=== PATIENT | female | born 1960 | race Hispanic/Latino ===

== ENCOUNTER 2020-11-03 15:48 | Emergency (ER) | payer SELFPAY ==
[2020-11-03 17:24] VITALS: BP 214/103
--- NOTE | 2020-11-03 17:40 | Emergency Department Report ---
ED ENT HPI - General Chief complaint: Skin/Abscess/Foreign Body Stated complaint: FACIAL EDEMA Time Seen by Provider: 11/03/20 17:28 Source: patient Mode of arrival: Ambulatory Limitations: No Limitations - History of Present Illness Initial comments: Patient is a 60-year-old female presents emergency room with complaints of left upper dental pain that began yesterday. States this morning when she woke up she noticed left facial edema. She states that she has not seen a dentist in multiple years. She denies any fever, nausea, vomiting, diarrhea, difficulty swallowing, difficulty breathing. Past medical history of cirrhosis and hepatitis C and HTN. Allergy to erythromycin. She states that she has not taken blood pressure medication in 10 years and has no idea what she previously took. - Related Data Home Medications Medication Instructions Recorded Confirmed Last Taken FLUoxetine [PROzac] 20 mg PO QDAY 04/05/13 04/05/13 Unknown Previous Rx's Medication Instructions Recorded Last Taken Type Metoclopramide HCl [Reglan] 10 mg PO Q6H PRN #15 tablet 04/05/13 Unknown Rx Nitrofurantoin Carroll/M-Cryst 100 mg PO Q12HR #10 capsule 04/05/13 Unknown Rx [Macrobid] Chlorhexidine Mouthwash [Peridex] 15 ml MM BID #1 bottle 11/03/20 Unknown Rx Clindamycin [Clindamycin CAP] 450 mg PO TID 7 Days #63 capsule 11/03/20 Unknown Rx Valsartan 80 mg PO DAILY #30 tablet 11/03/20 Unknown Rx amLODIPine 5 mg PO DAILY #30 tab 11/03/20 Unknown Rx oxyCODONE [roxiCODONE] 5 mg PO Q6HR PRN #10 tablet 11/03/20 Unknown Rx Allergies Allergy/AdvReac Type Severity Reaction Status Date / Time erythromycin base Allergy Vomiting Verified 04/05/13 13:43 [Erythromycin Base] ED Dental HPI - General Chief complaint: Skin/Abscess/Foreign Body Stated complaint: FACIAL EDEMA Time Seen by Provider: 11/03/20 17:28 Source: patient Mode of arrival: Ambulatory Limitations: No Limitations - Related Data Home Medications Medication Instructions Recorded Confirmed Last Taken FLUoxetine [PROzac] 20 mg PO QDAY 04/05/13 04/05/13 Unknown Previous Rx's Medication Instructions Recorded Last Taken Type Metoclopramide HCl [Reglan] 10 mg PO Q6H PRN #15 tablet 04/05/13 Unknown Rx Nitrofurantoin Carroll/M-Cryst 100 mg PO Q12HR #10 capsule 04/05/13 Unknown Rx [Macrobid] Chlorhexidine Mouthwash [Peridex] 15 ml MM BID #1 bottle 11/03/20 Unknown Rx Clindamycin [Clindamycin CAP] 450 mg PO TID 7 Days #63 capsule 11/03/20 Unknown Rx Valsartan 80 mg PO DAILY #30 tablet 11/03/20 Unknown Rx amLODIPine 5 mg PO DAILY #30 tab 11/03/20 Unknown Rx oxyCODONE [roxiCODONE] 5 mg PO Q6HR PRN #10 tablet 11/03/20 Unknown Rx Allergies Allergy/AdvReac Type Severity Reaction Status Date / Time erythromycin base Allergy Vomiting Verified 04/05/13 13:43 [Erythromycin Base] ED Review of Systems ROS: Stated complaint: FACIAL EDEMA Other details as noted in HPI Comment: All other systems reviewed and negative ED Past Medical Hx - Past Medical History Previous Medical History?: Yes Hx Hypertension: Yes Additional medical history: Stage 4 Liver disease/cirrhosis, hepatitis - Surgical History Past Surgical History?: Yes Hx Appendectomy: Yes Additional Surgical History: tonsillectomy, Hysterectomy - Social History Smoking Status: Current Every Day Smoker Substance Use Type: Alcohol - Medications Home Medications: Home Medications Medication Instructions Recorded Confirmed Last Taken Type FLUoxetine [PROzac] 20 mg PO QDAY 04/05/13 04/05/13 Unknown History Metoclopramide HCl [Reglan] 10 mg PO Q6H PRN #15 tablet 04/05/13 Unknown Rx Nitrofurantoin Carroll/M-Cryst 100 mg PO Q12HR #10 capsule 04/05/13 Unknown Rx [Macrobid] Chlorhexidine Mouthwash [Peridex] 15 ml MM BID #1 bottle 11/03/20 Unknown Rx Clindamycin [Clindamycin CAP] 450 mg PO TID 7 Days #63 capsule 11/03/20 Unknown Rx Valsartan 80 mg PO DAILY #30 tablet 11/03/20 Unknown Rx amLODIPine 5 mg PO DAILY #30 tab 11/03/20 Unknown Rx oxyCODONE [roxiCODONE] 5 mg PO Q6HR PRN #10 tablet 11/03/20 Unknown Rx ED Physical Exam - General Limitations: No Limitations General appearance: alert, in no apparent distress - Eye Eye exam: Present: normal appearance - ENT ENT exam: Present: mucous membranes moist, other (very poor dentition, multiple dental carries/missing teeth, there is edema of the left upper gum line adjacent to dental carries, there is moderate left upper facial edema, uvula is mildine, no uvular edema or deviation, no trismus, no muffled voice, no submandibular edema) ED Course Vital Signs 11/03/20 17:23 Temperature 99.6 F Pulse Rate 78 Respiratory 18 Rate Blood Pressure 214/103 O2 Sat by Pulse 98 Oximetry ED Medical Decision Making - Medical Decision Making Patient is a 60-year-old female presents emergency room with complaints of left upper dental pain that began yesterday. States this morning when she woke up she noticed left facial edema. She states that she has not seen a dentist in multiple years. She denies any fever, nausea, vomiting, diarrhea, difficulty swallowing, difficulty breathing. Past medical history of cirrhosis and hepatitis C and HTN. Allergy to erythromycin. She states that she has not taken blood pressure medication in 10 years and has no idea what she previously took. Vitals with elevated blood pressure, otherwise normal, patient has been off blood pressure medication for 10 years, she has no symptoms related to her elevated blood pressure at this time, the up-to-date medical literature does not recommend emergently lowering asymptomatic elevated blood pressure. On exam:very poor dentition, multiple dental carries/missing teeth, there is edema of the left upper gum line adjacent to dental carries, there is moderate left upper facial edema, uvula is mildine, no uvular edema or deviation, no trismus, no muffled voice, no submandibular edema. Examination consistent with dental abscess, no signs of facial abscess or Chato's at this time. Discussed case with Dr. Perla Cohen, ER attending who advised to write patient oxycodone without Tylenol for pain and advised to give patient prescriptions for amlodipine and losartan for her blood pressure. Patient given a list of community resources for dental and primary care follow-up. Advised patient Please take medication as prescribed. Please follow-up with a dentist. It is very important that you follow-up. Please follow-up with a primary care doctor. Keep a blood pressure log. Eat a low-sodium diet. Increase your water intake. Incorporate 30 to 60 minutes of daily exercise. Return to emergency room for any new or worsening symptoms. Critical care attestation.: If time is entered above; I have spent that time in minutes in the direct care of this critically ill patient, excluding procedure time. ED Disposition Clinical Impression: Dental abscess, Poor dentition, Dental caries, Elevated blood pressure reading, Non-compliance HTN (hypertension) Qualifiers: Hypertension type: unspecified Qualified Code(s): I10 - Essential (primary) hypertension Disposition: HOME / SELF CARE / HOMELESS Is pt being admited?: No Does the pt Need Aspirin: No Condition: Stable Instructions: Dental Abscess, Managing Your Hypertension, Hypertension (ED) Additional Instructions: Please take medication as prescribed. Please follow-up with a dentist. It is very important that you follow-up. Please follow-up with a primary care doctor. Keep a blood pressure log. Eat a low-sodium diet. Increase your water intake. Incorporate 30 to 60 minutes of daily exercise. Return to emergency room for any new or worsening symptoms. Prescriptions: amLODIPine 5 mg PO DAILY #30 tab Clindamycin [Clindamycin CAP] 450 mg PO TID 7 Days #63 capsule Chlorhexidine Mouthwash [Peridex] 15 ml MM BID #1 bottle oxyCODONE [roxiCODONE] 5 mg PO Q6HR PRN #10 tablet PRN Reason: Pain , Severe (7-10) Valsartan 80 mg PO DAILY #30 tablet Referrals: JELANI JACOB MD [Staff Physician] - 2-3 Days [facility] [Provider Group] - 2-[address] [facility] [Outside] - 2-3 Days [facility] [Outside] - 2-3 Days Time of Disposition: 17:41 Print Language: [place]
== END 2020-11-03 17:50 | disposition home or self-care (01) ==
LOC: ED 15:48
DX: K04.7 Periapical abscess without sinus (principal); K02.9 Dental caries, unspecified; I10 Essential (primary) hypertension; R03.0 Elevated blood-pressure reading, without diagnosis of hypertension; F17.200 Nicotine dependence, unspecified, uncomplicated; Z90.49 Acquired absence of other specified parts of digestive tract; Z90.89 Acquired absence of other organs; Z90.710 Acquired absence of both cervix and uterus; Z72.89 Other problems related to lifestyle; Z88.1 Allergy status to other antibiotic agents; Z79.899 Other long term (current) drug therapy
CPT/HCPCS: 99282